=== PATIENT | female | born 1970 | race African-American/Black ===

== ENCOUNTER 2018-09-26 11:24 | Emergency (ER) | payer MEDICAID ==
[2018-09-26 12:05] VITALS: BP 150/99
--- NOTE | 2018-09-26 13:01 | UC ---
General HPI - HPI Summary HPI Summary: 48 -year-old female who initially told me that she had moved to this area from [place] and had run out of her HIV medications and needed a refill. After further investigation she moved here in April 2018. She states pharmacist Refilling her prescription for her there for the recent time she had seen her primary care provider who was writing prescriptions for her medications was in April 2018. I also talked with the patient further and she actually has about 18 pills of her HIV medication however she has run out of her other medications for blood pressure, cholesterol, aspirin. She had a heart attack in 2001. She has not attempted to establish care here yet because she was able to get them continually refilled. - History of Current Complaint Chief Complaint: UCMedRefill Stated Complaint: MEDICATION REFILL Time Seen by Provider: 09/26/18 12:20 Hx Obtained From: Patient Onset/Duration: Other Current Severity: None - Patient denies any pain to me. Pain Intensity: 7 - Allergy/Home Medications Allergies/Adverse Reactions: Allergies Allergy/AdvReac Type Severity Reaction Status Date / Time Penicillins Allergy Blisters Verified 09/26/18 12:11 Home Medications: Home Medications Abacavir/Dolutegravir/Lamivudi [Triumeq 600-50-300 mg Tablet] 1 tab PO DAILY [History Confirmed 09/26/18] Aspirin EC TAB* [Ecotrin EC Low Dose 81 MG*] 81 mg PO DAILY 09/26/18 [History Confirmed 09/26/18] Atorvastatin* [Lipitor*] 20 mg PO DAILY 09/26/18 [History Confirmed 09/26/18] Hydrochlorothiazide TAB* [Hydrodiuril TAB*] 25 mg PO DAILY 09/26/18 [History Confirmed 09/26/18] [place]-3/Dha/Epa/Fish Oil [Fish Oil 1,000 mg Softgel] 1 cap PO DAILY 09/26/18 [ History Confirmed 09/26/18] Oxycodone HCl [Oxycodone HCl ER] 20 mg PO Q8H PRN 09/26/18 [History Confirmed ] Pregabalin [Lyrica] 75 mg PO DAILY 09/26/18 [History Confirmed 09/26/18] amLODIPine TAB* [Norvasc 5 mg TAB*] 10 mg PO DAILY 09/26/18 [History Confirmed 09/26/18] PMH/Surg Hx/FS Hx/Imm Hx Previously Healthy: Yes Cardiovascular History: Cardiac Disease, Hypertension Other History Of: HIV - Surgical History Surgical History: Yes Surgery Procedure, Year, and Place: 2 knee surgeries - Social History Alcohol Use: Occasionally Substance Use Type: None Smoking Status (MU): Light Every Day Tobacco Smoker Amount Used/How Often: 3-4 cigarettes a day Have You Smoked in the Last Year: Yes Review of Systems All Other Systems Reviewed And Are Negative: Yes Is Patient Immunocompromised?: Yes - history of HIV. - Comments Additional Review of Systems Comments: Patient has no complaints other than needing her medications refilled. Physical Exam Triage Information Reviewed: Yes Appearance: Well-Appearing, No Pain Distress, Well-Nourished Vital Signs: Initial Vital Signs Temp 98.1 F 09/26/18 11:56 Pulse 67 09/26/18 11:56 Resp 18 09/26/18 11:56 BP 150/99 09/26/18 11:56 Pulse Ox 100 09/26/18 11:56 Vital Signs Reviewed: Yes Musculoskeletal: Positive: Strength Intact, ROM Intact Neurological: Positive: Alert Psychological Exam: Normal Course/Dx - Course Course Of Treatment: Patient is here for refill of medications. She has not established care with a local provider. We were able to establish an appointment with [facility] in [place] for tomorrow at 940. She has 2 weeks left of her HIV medication therefore at her appointment tomorrow [facility] they should be able to provide her with a bridge prescription until she can get in to see Dr. Vidal, infectious disease specialist. The patient is agreeable to this plan of action. She does have a person in [place] she can contact who will arrange transport for her to get to the [facility] clinic and Dr. Vidal's office. - Diagnoses Provider Diagnosis: Medicine refill - Physician Notifications Discussed Patient Care With: Guerline Snyder Time Discussed With Above Provider: 12:45 Discharge - Sign-Out/Discharge Documenting (check all that apply): Patient Departure All imaging exams completed and their final reports reviewed: No Studies - Discharge Plan Condition: Good Disposition: HOME Referrals: No Primary Care Phys,NOPCP [Primary Care Provider] - [facility] [Outside] Additional Instructions: Follow up at the [facility] tomorrow at 0940am. Arrive approximately 20 minutes earlier to complete paperwork. They will help you get established with a primary care provider as well as with Dr. Vidal infectious disease specialist. - Billing Disposition and Condition Condition: GOOD Disposition: Home - Attestation Statements Provider Attestation: I was available for consult. This patient was seen by the KEITH. The patient was not presented to, seen by, or examined by me. -Deejay
== END 2018-09-26 13:09 | disposition home or self-care (01) ==
LOC: UCCORT 11:24
DX: Z76.0 Encounter for issue of repeat prescription (principal); I10 Essential (primary) hypertension; I25.2 Old myocardial infarction; B20 Human immunodeficiency virus [HIV] disease; Z88.0 Allergy status to penicillin; Z79.899 Other long term (current) drug therapy; F17.210 Nicotine dependence, cigarettes, uncomplicated
CPT/HCPCS: 99202; G0463